=== PATIENT | female | born 1970 | race Caucasian/White ===

== ENCOUNTER 2016-07-25 21:21 | Emergency (ER) | payer OTHER ==
[~2016-07-25] VITALS: Ht 162.6 cm; Wt 80.9 kg
[2016-07-25 21:41] VITALS: BP 127/81; PULSE 86; RESP 17; O2SAT 98
[2016-07-25 22:27] LABS: BASOPHILS % (AUTO) 0.6 % (0-3); EOSINOPHILS % (AUTO) 4.3 % (0-5); MONOCYTES % (AUTO) 7.6 % (4-12); Mean Corpuscular Hemoglobin 31.8 pg (27.0-35.0); Mean Corpuscular Volume 92.4 fL (81-100); NEUTROPHILS % (AUTO) 62.7 % (40-74); Platelet Count 262 bil/L (150-400)
--- NOTE | 2016-07-25 23:21 | ED.REPORT ---
HPI-Abd Pain F 40 and Over Date of Service July 25, 2016 ED Provider: David Huang MD The pt is a 45 y/o female w/ a hx of "Fobi" weight loss surgery, presenting to the ED complaining of R flank pain. She describes the pain as constant, stabbing , and radiating w/ movement. She has never had pain like this before. The pt went to Urgent Care before coming here. She takes pantoprazole, iron and Zyrtec daily for allergies. Denies any clotting in legs rash or cough. The surgery was done 7 years ago. Nursing Notes Stated Complaint: BACK/SIDE PAIN Chief Complaint: Female Abdominal Pain Nursing Notes Reviewed: Yes Allergies: Coded Allergies: aspirin (Verified Allergy, Intermediate, sob, 07/25/16) carisoprodol (Verified Allergy, Intermediate, sob, 07/25/16) sulfamethoxazole (Verified Allergy, Intermediate, sob, 07/25/16) trimethoprim (Verified Allergy, Intermediate, sob, 07/25/16) Scheduled PRN Ondansetron ODT (Ondansetron ODT) 8 Mg Tab.rapdis 8 MG PO QID PRN PRN For Nausea General Time Seen by MD: 23:20 Chief Complaint Flank pain right Hx Obtained From: Patient Arrived By: Walk-in Sudden in Onset?: Yes Onset Occurred: 5 - 8 hours ago Symptom Duration: Since onset Recent Healthcare: No recent hospitalization, Recent doctor visit Similar Sx Previous: No Past Medical History Past Medical History None reported Past Surgical History "Fobi" weight loss surgery Smoking History Unknown if Ever Smoker Ambulatory Status Independent Review of Systems Denies clotting in legs Respiratory: Denies: Non-productive cough Female: Reports: Flank pain (Right) Complete sys rev & neg: except as marked. Skin: Denies Rash Physical Exam Vital Signs Vital Signs (First) Date Time Temp Pulse Resp B/P Pulse Ox O2 Delivery O2 Flow Rate FiO2 07/25/16 21:41 36.6 86 17 127/81 98 Room Air Initial VS: Reviewed General/Constitutional: Awake, Alert Respiratory / Chest: Breath sounds NL, Breath sounds = bilat, No respiratory distress, No rales, No rhonchi, No wheezing, No stridor Cardiovascular: Heart rate NL, Regular rhythm, Heart sounds NL, Peripheral circulation NL Abdomen: Soft, No palpable mass Tenderness/Guarding/Rebound: Positive: Tender RUQ... (Mild), Tender flank R Back: Atraumatic, Full range of motion Head / Eyes: Atraumatic, Normocephalic ENT: Atraumatic, Airway patent, Mucous membranes moist Skin: Atraumatic, Color NL, No rash, Warm, Dry Neurologic: Oriented X3, Speech NL Psychiatric: Affect NL, Mood NL Interpretation & Diagnostics Lab Results Interpretation Result Diagram: 07/25/16 2215 07/25/16 2215 Test 07/25/16 22:15 07/25/16 22:40 White Blood Count 7.2th/mm3 (3.8-10.1) Red Blood Count 4.06mil/mm3 (3.90-5.20) Hemoglobin 12.9g/dL (12.0-15.6) Hematocrit 37.5% (35.0-46.0) Mean Corpuscular Volume 92.4fL (81-100) Mean Corpuscular Hemoglobin 31.8pg (27.0-35.0) Mean Corpuscular Hemoglobin Concent 34.4% (32.0-37.0) Red Cell Distribution Width 12.6% (12.3-15.4) Platelet Count 262bil/L (150-400) Neutrophils (%) (Auto) 62.7% (40-74) Lymphocytes (%) (Auto) 24.7% (14-46) Monocytes (%) (Auto) 7.6% (4-12) Eosinophils (%) (Auto) 4.3% (0-5) Basophils (%) (Auto) 0.6% (0-3) Sodium Level 139mEq/L (134-144) Potassium Level 4.4mEq/L (3.5-5.2) Chloride Level 102mEq/L (97-108) Carbon Dioxide Level 25mmol/L (18-29) Blood Urea Nitrogen 10mg/dL (6-24) Creatinine 0.46mg/dL (0.57-1.00) Estimat Glomerular Filtration Rate 209mL/min (>59) Glucose Level 112mg/dL (60-99) Calcium Level 8.8mg/dL (8.5-10.1) Magnesium Level 2.0mg/dL (1.6-2.6) Total Bilirubin 0.2mg/dL (0.0-1.2) Aspartate Amino Transf (AST/SGOT) 21U/L (0-50) Alanine Aminotransferase (ALT/SGPT) 33U/L (0-32) Alkaline Phosphatase 73U/L (25-150) Total Protein 6.9g/dL (6.4-8.4) Albumin 4.1g/dL (3.4-5.0) Lipase 35U/L (13-60) Hold Horta Top Tube Received (Received) Urine Color Yellow (YELLOW) Urine Appearance Clear (CLEAR,HAZY) Urine pH 5.5 (5.0-8.0) Urine Specific [place] 1.020 (1.003-1.035) Urine Protein Negativemg/dL (NEG,TRACE) Urine Glucose (UA) Negativemg/dL (NEGATIVE) Urine Ketones Negativemg/dL (NEGATIVE) Urine Occult Blood Negative (NEGATIVE) Urine Nitrite Negative (NEGATIVE) Urine Bilirubin Negative (NEGATIVE) Urine Urobilinogen Normalmg/dL (NORMAL) Urine Leukocyte Esterase Negative (NEGATIVE) Urine RBC 0-2/hpf (0-2) Urine WBC 0-5/hpf (0-5) Urine Epithelial Cells Moderate/hpf (NONE-MOD) Urine Crystals None seen (NONE SEEN) Urine Bacteria Few/hpf (NONE-FEW) Urine Hyaline Casts None/lpf (NONE) Urine Granular Casts None seen (NONE SEEN) Urine Waxy Casts None seen (NONE SEEN) Urine Red Blood Cell Casts None seen (NONE SEEN) Urine White Blood Cell Casts None seen (NONE SEEN) Urine Mucus Present (None Seen) Urine Trichomonas None seen (NONE SEEN) Urine Yeast None (NONE SEEN) Urinalysis Comment None Urine Culture Reflexed Not indicated Hold Urine Received (Received) CT Abd / Pelvis Interpretation Impression: 4 mm right renal stone. No hydroneprosis. This report was transmitted to the emergency room at 07/26/2016 - 2:14:42 AM PDT. Study type: Abdominal CT IV contrast Interpretation / Wet Read by: Interpret - Radiologist Re-Eval/Medical Decision Med Decision/Clinical Course 45-year-old presents status post gastric pouch surgery many years ago, with right upper quadrant abdominal pain and flank pain. Findings are essentially unremarkable. There is a 4 mm stone in her kidney but no hydronephrosis and no evidence of renal colic to explain her pain. CT shows a normal-looking gallbladder no significant findings. No apparent leak of oral contrast or other abnormality of her surgically altered upper GI tract. Home with Vicodin and Zofran for follow-up with PCP and with surgery. Discharged in stable condition. Source of Hx: Old records Re-Evaluation/Progress : Time of Eval: 02:47 Re-Evaluation/Progress Note: Rechecked pt. Discussed imaging results. Discussed plan for discharge. Pt understands and agrees with plan for treatment. F/U instructions and RTER warnings given. All questions addressed. Counseled Regarding: Diagnosis, Lab results, Need for follow-up, When/why to return to ED Discharge & Departure Shift Change Sign-Out Response to Therapy: Improved Primary Impression: Right upper quadrant abdominal pain Additional Impression: Nephrolithiasis Disposition: Home Discharge Condition All VS Reviewed: Yes Condition: Stable Additional Instructions: We do not have a direct explanation for your pain. The stone in her right kidney is not in the ureter and is not causing pain. Your gallbladder appears to be normal and there is no evidence of obstruction. There is no evidence of leak of contrast related to her surgery. Use Vicodin sparingly for pain. Zofran if needed for nausea. Follow up with your doctor in the office. Return if worsening or any new symptoms of concern. Referrals: David Garcia DO (PCP) Jimmy Attestation Portions of this note were transcribed by Niranjan Amezcua. I, Dr. Huang personally performed the history, physical exam and medical decision-making; I reviewed and confirmed the accuracy of the information in the transcribed note. Signed by : Jimmy Patino, 07/26/16 and 0315. copies to: David Garcia Christopher W MD July 25, 2016 23:21 Niranjan Amezcua July 26, 2016 00:51
[2016-07-25] MEDS ORDERED: 0.9% Sodium Chloride 1,000 ML IV ONE (23:54)
[2016-07-25] MEDS ORDERED: Ondansetron 2 mg/mL 2 mL Inj IVPUSH ONE (23:55)
[2016-07-26 00:02] LABS: APPEARANCE,URINE CLEAR (CLEAR,HAZY); COLOR,URINE YELLOW (YELLOW); OCCULT BLOOD,URINE NEGATIVE (NEGATIVE); PH,URINE 5.5 (5.0-8.0); UROBILINOGEN,URINE NORMAL (NORMAL)
[2016-07-26] MEDS ORDERED: Iohexol 300 mg/mL 30 mL Inj PO ONE (00:10)
[2016-07-26] MEDS: HYDROmorphone 1 mg/mL Inj IVPUSH PRN ×2 (00:28→01:39)
[2016-07-26] MEDS ORDERED: _Ondansetron ODT 4 mg Tablet PO PRN (02:55)
[2016-07-26] MEDS ORDERED: _HYDROcodone/APAP 5-325 mg Tablet PO PRN (02:55)
[2016-07-26] MEDS ORDERED: ONDA8TAB10 PO (03:02)
[2016-07-26 03:17] VITALS: BP 126/80; PULSE 82; RESP 16; O2SAT 99
--- NOTE | 2016-07-26 08:49 | DRSVH ---
PROCEDURE: CT ABDOMEN AND PELVIS WITH CONTRAST ([id number]) INDICATIONS: ruq and flank pain TECHNIQUE: After the administration of oral and intravenous contrast, 5 mm thick sections acquired from the diap hragms to the symphysis. 5 mm thick coronal and sagittal reformats were performed. For radiation do se reduction, the following was used: automated exposure control, adjustment of mA and/or kV accordi ng to patient size. COMPARISON: None. FINDINGS: Image quality: Excellent. ABDOMEN: Lung bases: Lung bases are clear. Heart size is normal. Solid organs: Liver and spleen are normal in size and enhancement. Gallbladder is within normal larios its. Biliary system is non-dilated. Pancreas enhances normally. No adrenal nodules. Kidneys are n ormal in size and enhancement, without hydronephrosis. 3 mm diameter calculus right interpolar kidne y posteriorly. Peritoneum and bowel: Gastric bypass procedure. Small hiatal hernia. Stomach, small bowel, and colon loops are normal in caliber and wall thickness. Visualized portions of the appendix are within norm al limits. No free fluid or air. Nodes and vessels: No retroperitoneal or mesenteric adenopathy. Aorta and inferior vena cava are no rmal in caliber. Miscellaneous: No ventral hernias. PELVIS: Genitourinary: Bladder wall thickness is normal. Miscellaneous: No inguinal hernias or adenopathy. Bones: No suspicious bony lesions. No vertebral body compression fractures. IMPRESSION: 1. No acute process. 2. Nonobstructing right renal calculus. 3. Normal appendix. 4. Concordant with preliminary interpretation. Dictated by: Dipti Flores M.D. on 07/26/2016 at 8:45 Approved by: Dipti Flores M.D. on 07/26/2016 at 8:47
== END 2016-07-26 03:18 | disposition home or self-care (01) ==
LOC: SED 21:21
DX: R10.11 Right upper quadrant pain (principal); N20.0 Calculus of kidney; Z98.84 Bariatric surgery status; Z88.1 Allergy status to other antibiotic agents; Z88.8 Allergy status to other drugs, medicaments and biological substances
CPT/HCPCS: 36415; 74177; 80053; 81000; 81025; 83690; 83735; 85025; 96361; 96374; 96375; 96376; 99285; J1170; J2405; J7030; Q9967